=== PATIENT | female | born 1990 | race Caucasian/White ===

== ENCOUNTER 2023-10-07 08:42 | Emergency (ER) | payer OTHER ==
[~2023-10-07] VITALS: Ht 149.8 cm; Wt 51.3 kg
[~2023-10-07 08:42] MED LIST: ATARAX,VISTARIL50 MG PO; CARBIDOPA/LEVOD1 TA1 PO; ONDANSETRON HYDR4 M1 PO; SINEMET 25-100M1 TAB PO; WOMEN'S LAXATIVE5 MG PO
[2023-10-07] MEDS ORDERED: AMOX-CLAV 875-1 EACH PO (09:23)
== END 2023-10-07 09:31 | disposition home or self-care (01) ==
LOC: ED 08:42
DX: K04.7 Periapical abscess without sinus (principal); F19.10 Other psychoactive substance abuse, uncomplicated